=== PATIENT | female | born 1955 | race Asian ===

== ENCOUNTER 2018-02-07 07:40 | Emergency (ER) | payer OTHER ==
[~2018-02-07] VITALS: Ht 157.5 cm; Wt 123.1 kg
[2018-02-07 07:48] VITALS: Ht 157.5 cm; Wt 123.1 kg
[2018-02-07 08:31] VITALS: BP 202/98
== END 2018-02-07 09:13 | disposition home or self-care (01) ==
LOC: ED 07:40
DX: H01.001 Unspecified blepharitis right upper eyelid (principal); H01.002 Unspecified blepharitis right lower eyelid; L03.213 Periorbital cellulitis; I10 Essential (primary) hypertension; E66.9 Obesity, unspecified

== ENCOUNTER 2018-05-10 19:14 | Emergency (ER) | payer MEDICAID ==
[~2018-05-10] VITALS: Ht 160 cm; Wt 124.3 kg
[2018-05-10 19:29] VITALS: Ht 160 cm; Wt 124.3 kg
[2018-05-10 20:51] LABS: BASOPHIL % 1.1 % (0-2); PLATELET COUNT 270 x10^3mcL (130-400); RED CELL DISTRIBUTION WIDTH 13.2 % (11.5-14.5)
[2018-05-10 20:55] LABS: CALCIUM 8.1 mg/dL (8.5-10.1); CREATININE SERUM 1.3 mg/dL (0.6-1.0)
[2018-05-10 20:59] LABS: BILIRUBIN TOTAL 0.3 mg/dL (0.20-1.00)
[2018-05-10 22:37] VITALS: BP 193/134
== END 2018-05-10 22:37 | disposition home or self-care (01) ==
LOC: ED 19:14
PROVIDERS: Emergency Medicine
DX: R60.9 Edema, unspecified (principal); I10 Essential (primary) hypertension; M71.22 Synovial cyst of popliteal space [Baker], left knee; M72.2 Plantar fascial fibromatosis; Z90.710 Acquired absence of both cervix and uterus
CPT/HCPCS: 36415; Q0092

== ENCOUNTER 2018-10-28 11:08 | Emergency (ER) | payer SELFPAY ==
[~2018-10-28] VITALS: Ht 160 cm; Wt 119.7 kg
[2018-10-28 11:22] VITALS: Ht 160 cm; Wt 119.7 kg
[2018-10-28 13:53] VITALS: BP 163/113
== END 2018-10-28 13:53 | disposition home or self-care (01) ==
LOC: ED 11:08
DX: J20.9 Acute bronchitis, unspecified (principal); I10 Essential (primary) hypertension; M10.9 Gout, unspecified; M72.2 Plantar fascial fibromatosis; Z90.710 Acquired absence of both cervix and uterus

== ENCOUNTER 2020-03-30 17:18 | Emergency (ER) | payer SELFPAY ==
[~2020-03-30] VITALS: Ht 165.1 cm; Wt 114.8 kg
[2020-03-30 17:37] VITALS: Ht 165.1 cm; Wt 114.8 kg
[2020-03-30 20:15] LABS: BASOPHIL % 0.4 % (0-2); PLATELET COUNT 256 x10^3mcL (130-400)
[2020-03-30 20:16] LABS: RED CELL DISTRIBUTION WIDTH 15.2 % (11.5-14.5)
[2020-03-30 20:37] LABS: CARBON DIOXIDE 28.7 mmol/L (21-32); CREATININE SERUM 1.6 mg/dL (0.6-1.0); POTASSIUM SERUM 4.1 mmol/L (3.5-5.1)
[2020-03-30 20:44] LABS: ALBUMIN 3.1 g/dL (3.4-5.0); BILIRUBIN TOTAL 0.49 mg/dL (0.20-1.00)
[2020-03-30 21:39] LABS: UA SPECIFIC GRAVITY 1.015 (1.005-1.035); microscopic required? YES; urine erythrocyte 1+ (NEGATIVE)
[2020-03-31 00:08] VITALS: BP 147/87
== END 2020-03-31 00:08 | disposition home or self-care (01) ==
LOC: ED 17:18
PROVIDERS: Emergency Medicine
DX: R42 Dizziness and giddiness (principal); I10 Essential (primary) hypertension; N39.0 Urinary tract infection, site not specified; Z90.710 Acquired absence of both cervix and uterus
CPT/HCPCS: 83880; J0360; J0696; J2405; J7060; J8597; Q0092